=== PATIENT | male | born 1960 | race Caucasian/White ===

== ENCOUNTER 2024-05-27 09:26 | Outpatient (CLI) | payer OTHER, SELFPAY ==
--- NOTE | ~2024-05-27 | US_ITS ---
EXAMINATION: US retroperitoneal duplex ltd DATE: 05/27/2024 10:26 INDICATION: Hypertension. TECHNIQUE: Multiple grayscale, color Doppler, and pulsed Doppler images of the kidneys and renal rhonda michelle were obtained. COMPARISON: None. FINDINGS: The aorta peak systolic velocity is 125 cm/s. The right renal artery peak systolic velocity is 78 cm/ s in the proximal segment, 78 cm/s in the mid segment, and 70 cm/s in the distal segment. The left re nal artery peak systolic velocity is 80 cm/s in the proximal segment, 60 cm/s in the mid segment, and 58 cm/s in the distal segment. There is diffuse hepatic steatosis. IMPRESSION: 1. No Doppler evidence of renal artery stenosis. 2. Diffuse hepatic steatosis. Reviewed, dictated and finalized at location A.
== END 2024-05-27 09:27 | disposition home or self-care (01) ==
DX: I1A.0 Resistant hypertension (principal); K76.0 Fatty (change of) liver, not elsewhere classified
CPT/HCPCS: 93976